=== PATIENT | male | born 1955 ===

== ENCOUNTER 2018-01-08 17:07 | Inpatient (IN) | payer OTHER ==
[~2018-01-08] VITALS: Ht 175.2 cm; Wt 88.5 kg
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
--- NOTE | ~2018-01-08 | PR ---
[place], [place] PROGRESS NOTE NAME: JEFF HICKMAN UNIT #: [id number] ROOM: 312 DOCTOR: TIGRE HEDRICK MD BIRTHDATE: [birth year] DOS: 01/10/2018 CHIEF COMPLAINT: "Yeah, "I didn't sleep too well. I have dreams, but not flashbacks." SUMMARY OF THE VISIT: The patient was interviewed in the storey and then later we walked in his room as he sat on the bed. He engaged in conversation and was much more pleasant with me than he had been yesterday that edginess that was present had left and he engaged in open conversation with me, stating that he does feel better and does feel like he does need to get hooked up with some type of counseling post-discharge, so he and his can work things out better. He reports no ill feelings at the present time, stating that he is not suicidal or homicidal, and he would not hurt himself or anybody else. He also reports that he is tolerating the current medication regimen well without any apparent side effects. MENTAL STATUS: He is alert and oriented. Mood does seem to be trending towards euthymia. Affect is more appropriate. There is no jorge a, hypomania or gross psychotic symptoms. Short, intermediate, and long-term memory are fully intact. PLAN: I will increase his Vraylar from 3-4.5 mg at bedtime and add hydroxyzine 50 mg t.i.d. to decrease any overriding anxiety during the day. We will engage in individual and martinez milieu activity with the ultimate plan to discharge home when psychiatrically stable. TIGRE HEDRICK MD CM:PNTRANS [id number] TIGRE HEDRICK MD 01/11/18 0004 interface
[2018-01-08] MEDS ORDERED: LISINOPRIL40 MG PO (17:35)
[2018-01-08] MEDS ORDERED: TOPROL XL25 MG PO (17:36)
[2018-01-08] MEDS ORDERED: HYDROCHLOROTHIA25 M1 PO (17:36)
[2018-01-08] MEDS ORDERED: PRAVASTATIN SOD40 MG PO (17:37)
[2018-01-08] MEDS ORDERED: METFORMIN ER500 MG PO (17:37)
[2018-01-08] MEDS ORDERED: ZANAFLEX2 M1 PO (17:38)
[2018-01-08] MEDS ORDERED: CYMBALTA60 MG PO (17:39)
[2018-01-08] MEDS ORDERED: CHANTIX1 M1 PO (17:40)
[2018-01-08 22:27] VITALS: BP 140/86
[2018-01-08 23:43] LABS: BILIRUBIN NEGATIVE (NEGATIVE); BLOOD NEGATIVE (NEGATIVE); CLARITY CLEAR (CLEAR); COLOR YELLOW (YELLOW); GLUCOSE NEGATIVE (NEGATIVE); KETONE NEGATIVE (NEGATIVE); LEUKO ESTERASE NEGATIVE (NEGATIVE); NITRITE NEGATIVE (NEGATIVE); SPECIFIC GRAVITY 1.015 (1.005-1.030); UROBILINOGEN 0.2 E.U./dl (0.2-1.0)
[2018-01-08 23:52] LABS: WBC 0-2 wbc/hpf (0-5)
[2018-01-08 23:54] LABS: URINE AMPHETAMINES < 1000 (1000ng/ml); URINE BARBITURATES < 200 (200ng/ml); URINE BENZODIAZEPINES < 200 (200ng/ml); URINE CANNABINOIDS (THC) < 50 (50ng/ml); URINE COCAINE < 300 (300ng/ml); URINE METHADONE < 300 (300ng/ml); URINE OPIATES < 300 (300ng/ml); URINE PHENCYCLIDINE < 25 (25ng/ml)
[2018-01-09 06:46] LABS: BASO # 0.1 10*3/uL (0.0-0.1); BASO % 0.8 % (0.0-1.0); EOS # 0.3 10*3/uL (0.0-0.4); EOS % 2.6 % (1.0-4.0); HEMOGLOBIN 12.5 g/dl (14.0-18.0); LYMPH # 3.3 10*3/uL (1.3-4.4); LYMPH % 29.2 % (27.0-41.0); MEAN CELL VOLUME 89.8 fl (80.0-94.0); MEAN CORPUSCULAR HGB 30.3 pg (27.0-31.0); MEAN CORPUSCULAR HGB CONC 33.8 g/dl (33.0-37.0); MEAN PLATELET VOLUME 9.7 fl (9.6-12.3); MONO # 1.3 10*3/uL (0.1-1.0); MONO % 11.8 % (3.0-9.0); NEUT # 6.2 10*3/uL (2.3-7.9); PLATELET COUNT AUTOMATED 363 10*3/uL (130-400); RED BLOOD COUNT 4.12 10*6/uL (4.50-5.90); RED CELL DISTRI WIDTH 13.7 % (0-14.5); WHITE BLOOD COUNT 11.3 10*3/uL (4.8-10.8)
[2018-01-09 07:13] LABS: ALBUMIN 3.9 gm/dl (3.1-4.5); BUN 24 mg/dl (7-24); CHLORIDE 107 mmol/L (98-107); POTASSIUM 4.3 mmol/L (3.5-5.1); SODIUM 141 mmol/L (136-145)
[2018-01-09 07:25] LABS: ALKALINE PHOSPHATASE 61 U/L (45-117); CHOLESTEROL 173 mg/dL (<200); HDL CHOLESTEROL 28 mg/dl (40-60); SGOT/AST 24 IU/L (3-35); SGPT/ALT 45 U/L (12-78); TOTAL PROTEIN 7.2 gm/dL (6.4-8.2); TRIGLYCERIDES 523 mg/dl (<150)
[2018-01-09 08:02] VITALS: BP 147/85
[2018-01-09 08:14] LABS: VITAMIN D, 25-HYDROXY 6.9 ng/mL (30-100)
[2018-01-09 20:37] VITALS: BP 96/54
[2018-01-09 20:39] VITALS: BP 129/67
[2018-01-10 08:00] VITALS: BP 136/73
[2018-01-10] MEDS ORDERED: B121000 MCG/1 IM (09:14)
[2018-01-10] MEDS ORDERED: Vitamin D PO (09:14)
[2018-01-10] MEDS ORDERED: VRAYLAR4.5 MG PO (09:14)
[2018-01-10] MEDS ORDERED: VISTARIL IM (09:14)
[2018-01-10] MEDS ORDERED: DULOXETINE HCL30 MG PO (09:14)
[2018-01-10 20:03] VITALS: BP 135/64
[2018-01-11 07:45] VITALS: BP 147/82
== END 2018-01-11 13:16 | disposition home or self-care (01) | DRG 885 ==
LOC: 3N 17:07
PROVIDERS: Psychiatry & Neurology Psychiatry
DX: F33.3 Major depressive disorder, recurrent, severe with psychotic symptoms (principal); R45.851 Suicidal ideations; E11.9 Type 2 diabetes mellitus without complications; F60.9 Personality disorder, unspecified; F10.21 Alcohol dependence, in remission; F17.210 Nicotine dependence, cigarettes, uncomplicated; M54.9 Dorsalgia, unspecified; G89.29 Other chronic pain; E53.8 Deficiency of other specified B group vitamins; E55.9 Vitamin D deficiency, unspecified; M79.2 Neuralgia and neuritis, unspecified; I10 Essential (primary) hypertension; E78.5 Hyperlipidemia, unspecified; M19.90 Unspecified osteoarthritis, unspecified site; Z88.8 Allergy status to other drugs, medicaments and biological substances; Z84.89 Family history of other specified conditions; Z71.6 Tobacco abuse counseling